=== PATIENT | female | born 1960 | race Caucasian/White ===

== ENCOUNTER 2023-06-30 10:05 | Day surgery (SDC) | payer OTHER ==
[~2023-06-30] VITALS: Ht 162.6 cm; Wt 62.6 kg
[2023-06-30] MEDS ORDERED: LIDOCAINE 2% 100 MG/5 ML UJET TP ONE (13:39)
[2023-06-30] MEDS ORDERED: fentaNYL citrate 0.05 MG/ML VIAL ONE (13:39)
== END 2023-06-30 15:00 | disposition home or self-care (01) ==
LOC: MDS 10:05 → MMU 10:34 → MDS 15:00
PROVIDERS: ATTEND Internal Medicine Gastroenterology
DX: Z12.11 Encounter for screening for malignant neoplasm of colon (principal); K63.5 Polyp of colon; M19.90 Unspecified osteoarthritis, unspecified site; E78.00 Pure hypercholesterolemia, unspecified; Z79.899 Other long term (current) drug therapy
CPT/HCPCS: 45380; J3010